=== PATIENT | female | born 1965 | race African-American/Black ===

== ENCOUNTER → 2016-12-30 | Outpatient (CLI) | payer OTHER ==
--- NOTE | 2016-12-30 08:40 | REPMRS ---
Patient History The patient states she has not had a clinical breast exam in over a year. Patient is postmenopausal. No known family history of cancer. Digital Woman Screen Mammo: December 30, 2016 - Exam #: [id number] Bilateral CC and MLO view(s) were taken. Technologist: Alicia Torres, Technologist Prior study comparison: January 20, 2016, digital woman screen mammo performed at [facility] to [facility]. December 06, 2014, digital woman screen mammo performed at [facility] to [facility]. November 13, 2013, digital woman screen mammo performed at [facility] to [facility]. FINDINGS: There are scattered fibroglandular densities. There has been no change in the appearance of the mammogram from the prior studies. There is a mild amount of scattered fibroglandular density which is fairly symmetric. There is no interval development of dominant mass, architectural distortion, or clustered microcalcification suggestive of malignancy. ASSESSMENT: BI-RADS/ACR category 1 mammogram. Negative. Recommendation Routine screening mammogram in 1 year (for women over age 40). This mammogram was interpreted with the aid of an FDA-approved computer-aided dectection system. Electronically Signed By: Bernard Nixon MD 12/30/16 0840
== END | disposition home or self-care (01) ==
LOC: M WHC 08:12
PROVIDERS: ATTEND Internal Medicine
DX: Z12.31 Encounter for screening mammogram for malignant neoplasm of breast (principal); Z78.0 Asymptomatic menopausal state

== ENCOUNTER → 2017-07-12 | Outpatient (CLI) | payer OTHER ==
--- NOTE | 2017-07-12 11:43 | REP ---
MRI OF THE LEFT ANKLE: TECHNIQUE: Sagittal proton density, STIR, axial proton density fat sat, T1, coronal proton density, STIR. The Achilles, anterior tibial, posterior tibial, flexor hallucis longus, flexor digitorum longus and peroneal tendons all appear intact. There is no evidence of tenosynovitis. The anterior and posterior talofibular, calcaneofibular, and deltoid ligaments appear intact. Plantar fascia demonstrates no abnormal signal. There is no evidence of plantar fascitis. Plantar tendon is intact. There is a normal amount of joint fluid. No ganglion cyst is seen. Tibiotalar joint is unremarkable with no osteochondral defect. IMPRESSION: Essentially negative MRI left ankle. Signed by Omar Santana MD 07/12/2017 12:52 P
== END ==
LOC: M RAD 10:09
PROVIDERS: ATTEND Podiatrist
DX: M76.822 Posterior tibial tendinitis, left leg (principal)

== ENCOUNTER → 2018-01-11 | Outpatient (CLI) | payer OTHER | LOC: M WHC 08:04 | DX: Z12.31 Encounter for screening mammogram for malignant neoplasm of breast (principal) ==

== ENCOUNTER → 2020-09-12 | Outpatient (CLI) | payer OTHER ==
--- NOTE | 2020-09-12 10:10 | REPMRS ---
Patient History The patient states she has not had a clinical breast exam in over a year. Family history of prostate cancer at age 50 or over in maternal uncle. Digital Woman Screen Mammo: September 12, 2020 - Exam #: [id number] Bilateral CC and MLO view(s) were taken. Technologist: Darby Ness, Technologist Prior study comparison: April 19, 2019, bilateral digital woman screen mammo performed at [facility]. January 11, 2018, digital woman screen mammo performed at [facility]. December 30, 2016, digital woman screen mammo performed at [facility]. FINDINGS: There are scattered fibroglandular densities. The Volpara volumetric breast density category is:B. There has been no change in the appearance of the mammogram from the prior studies. There is a mild amount of scattered fibroglandular density which is fairly symmetric. There is no interval development of dominant mass, architectural distortion, or grouped microcalcification suggestive of malignancy. 3-D tomosynthesis shows no additional findings. Assessment: BI-RADS/ACR category 1 mammogram. Negative Mammogram. Recommendation Routine screening mammogram of both breasts in 1 year (for women over age 40). This patient's Lifetime Breast Cancer Risk is estimated at 7.0 %. This mammogram was interpreted with the aid of an FDA-approved computer-aided dectection system. Electronically Signed By: Bernard Nixon MD 09/12/20 [id number]
== END ==
LOC: M WHC 07:29
PROVIDERS: ATTEND Family Medicine
DX: Z12.31 Encounter for screening mammogram for malignant neoplasm of breast (principal); Z80.42 Family history of malignant neoplasm of prostate

== ENCOUNTER 2020-12-23 07:53 | Day surgery (SDC) | payer OTHER ==
[~2020-12-23] VITALS: Ht 154.9 cm; Wt 78.0 kg
[~2020-12-23 07:53] MED LIST: HYDR12CA PO; NS 1,000 ML IV ONE; SERT-138 PO; SYNT75TA PO
[2020-12-23] MEDS ORDERED: propofoL 200 MG/20 ML VIAL As Ordered ONE ×2 (08:13→09:54)
[2020-12-23] MEDS ORDERED: LIDOCAINE 2% 100MG/5ML SDV (FOR ANES.) As Ordered ONE (08:13)
--- NOTE | 2020-12-23 10:00 | ROOR ---
Patient Name: Mary Milton Procedure Date: 12/23/2020 9:25 AM Date of : 1965 Age: 55 Room: [facility] Gender: Female Note Status: Finalized Procedure: Colonoscopy Indications: Change in bowel habits Providers: Arnaldo RASHID MD Referring MD: DIANE CONTRERAS MD Requesting Provider: Medicines: Monitored Anesthesia Care Complications: No immediate complications. Procedure: Pre-Anesthesia Assessment: - The heart rate, respiratory rate, oxygen saturations, blood pressure, adequacy of pulmonary ventilation, and response to care were monitored throughout the procedure. The Colonoscope was introduced through the anus and advanced to the cecum, identified by appendiceal orifice and ileocecal valve. The colonoscopy was somewhat difficult due to a tortuous colon. Successful completion of the procedure was aided by applying abdominal pressure. The patient tolerated the procedure well. The quality of the bowel preparation was good. Findings: The perianal and digital rectal examinations were normal. The colon (entire examined portion) was redundant. Small Internal Hemorrhoids. The exam was otherwise without abnormality. Impression: - Somewhat redundant, but otherwise normal colon. - Small Internal Hemorrhoids. - No specimens collected. Recommendation: - Use fiber, for example Citrucel, Fibercon, Konsyl or Metamucil. Procedure Code(s): --- Professional --- 05523, Colonoscopy, flexible; diagnostic, including collection of specimen(s) by brushing or washing, when performed (separate procedure) Diagnosis Code(s): --- Professional --- Q43.8, Other specified congenital malformations of intestine R19.4, Change in bowel habit CPT copyright 2019 [employer]. All rights reserved. The codes documented in this report are preliminary and upon lieutenant/deputy review may be revised to meet current compliance requirements. Arnaldo Rashid MD Arnaldo RASHID MD 12/23/2020 10:00:02 AM Electronically signed by Arnaldo RASHID MD Number of Addenda: 0 Note Initiated On: 12/23/2020 9:25 AM Estimated Blood Loss: Estimated blood loss: none.
[2020-12-23 10:40] VITALS: BP 146/65
== END 2020-12-23 10:42 | disposition home or self-care (01) ==
LOC: M OPP 07:53
PROVIDERS: ATTEND Internal Medicine Gastroenterology
DX: R19.4 Change in bowel habit (principal); K64.8 Other hemorrhoids; Q43.8 Other specified congenital malformations of intestine; I10 Essential (primary) hypertension; E03.9 Hypothyroidism, unspecified; F41.9 Anxiety disorder, unspecified; F32.9 Major depressive disorder, single episode, unspecified; Z79.899 Other long term (current) drug therapy; Z83.3 Family history of diabetes mellitus; Z83.6 Family history of other diseases of the respiratory system

== ENCOUNTER 2021-01-06 11:40 | Emergency (ER) | payer OTHER ==
[~2021-01-06 11:40] MED LIST changes: -NS 1,000 ML IV ONE
[2021-01-06] MEDS ORDERED: HYDROMORPHONE HCL 0.5 MG/ 0.5 ML SYRINGE (J1170 PER 1) IV PRN (14:45)
--- NOTE | 2021-01-06 15:11 | REP ---
INDICATION: hypertension COMPARISON: 08/17/2011 TECHNIQUE: Portable AP view of the chest FINDINGS: The mediastinum and cardiac silhouette are stable and within normal limits for portable technique. The lung davis are clear without acute consolidation, effusion, or pneumothorax. Skeletal structures are intact. IMPRESSION: No acute cardiopulmonary process appreciated. <Electronically signed by Ken Duque > 01/06/21 3081
--- NOTE | 2021-01-06 15:39 | REP ---
INDICATION: headache COMPARISON: None. TECHNIQUE: Axial noncontrast images from the skull base to the vertex with coronal reformations. This CT examination was performed using the following dose reduction techniques: Automated exposure control, adjustment of mA and/or kv according to the patient's size, and use of iterative reconstruction technique. FINDINGS: The ventricles, sulci, and cisterns are normal in position and appearance. Santana-white differentiation is maintained. No acute intracranial hemorrhage, mass/mass effect, pathology or trauma/injury. No evidence for acute infarction. No extra-axial fluid collection. Calvarium is intact. Paranasal sinuses and mastoid air cells are clear. IMPRESSION: Normal noncontrast head CT. No evidence for acute intracranial pathology or trauma/injury. <Electronically signed by Ken Duque > 01/06/21 2201
[2021-01-06 15:50] LABS: BASO % 0.3 % (0.0-1.0); EOS % 0.5 % (0.0-3.0); HEMATOCRIT 40.1 % (36.0-47.0); HEMOGLOBIN 12.4 g/dl (12.0-15.5); LYMPH # 1.6 10^3/uL (1.5-5.0); LYMPH % 27.2 % (24.0-44.0); MEAN CORPUSCULAR HEMOGLOBIN 28.8 pg (27.0-33.0); MEAN CORPUSCULAR HGB CONC 30.9 g/dl (32.0-36.5); MONO # 0.3 10^3/uL (0.0-0.8); MONO % 4.3 % (0.0-5.0); NEUTROPHILS # 3.9 10^3/uL (1.5-8.5); NEUTROPHILS % 67.5 % (36.0-66.0); PLATELET COUNT, AUTOMATED 233 10^3/uL (150-450); RED BLOOD COUNT 4.31 10^6/uL (4.00-5.40); WHITE BLOOD COUNT 5.8 10^3/uL (4.0-10.0)
[2021-01-06] MEDS ORDERED: METOCLOPRAMIDE INJ 10MG/2ML VIAL (J2765 PER 1) IV ONE (16:00)
[2021-01-06] MEDS ORDERED: KETOROLAC 30 MG/ML 1ML VIAL IV ONE (16:00)
[2021-01-06] MEDS ORDERED: ACETAMINOPHEN 500 MG TAB PO ONE (16:00)
[2021-01-06] MEDS ORDERED: diphenhydrAMINE 50MG/ML VIAL (J1200) IV ONE (16:00)
[2021-01-06 16:19] LABS: ALBUMIN 3.6 GM/DL (3.2-5.2); ALT/SGPT 21 U/L (12-78); BILIRUBIN,DIRECT < 0.1 MG/DL (0.0-0.2); BILIRUBIN,TOTAL 0.4 MG/DL (0.2-1.0); THYROID STIMULATING HORMONE 0.208 uIU/ML (0.358-3.740); TOTAL PROTEIN 7.4 GM/DL (6.4-8.2)
[2021-01-06] MEDS ORDERED: amLODIPine 5 MG TAB PO ONE (17:30)
[2021-01-06 17:54] VITALS: BP 153/74
[2021-01-06] MEDS ORDERED: AMLO1TAB24 PO (18:28)
[2021-01-06 18:49] VITALS: BP 167/88
[2021-01-06 19:26] LABS: FREE T4 1.44 NG/DL (0.76-1.46)
--- NOTE | 2021-01-07 08:53 | ECGEPIP ---
[facility] - ED Test Date: 2021-01-06 Pat Name: DM GAMNIO Department: Room: - Gender: Female Candy Dipper Hand: ROSE MARY : 1965 Requested By: SHAHEED Milian Order Number: [id number] Reading MD: Jena Thakur Measurements Intervals [place] Rate: 64 P: 53 AR: 156 QRS: 13 QRSD: 88 T: 10 QT: 403 QTc: 419 Interpretive Statements SINUS RHYTHM NO PRIOR Electronically Signed on 01-07-2021 8:52:29 EST by Jena Thakur
== END 2021-01-06 18:45 | disposition home or self-care (01) ==
LOC: M ED 11:40
DX: I16.0 Hypertensive urgency (principal); F41.9 Anxiety disorder, unspecified; F32.9 Major depressive disorder, single episode, unspecified; E03.9 Hypothyroidism, unspecified; Z79.899 Other long term (current) drug therapy
CPT/HCPCS: 36415; 70450; 71045; 80047; 80076; 84439; 84443; 85025; 93005; 93041; 94760; 96374; 96375; 99285; J1170; J1200; J1885; J2765

== ENCOUNTER → 2022-01-12 | Outpatient (CLI) | payer OTHER ==
[~2022-01-12] MED LIST changes: +AMLO1TAB24 PO
== END ==
LOC: M WHC 13:21
PROVIDERS: ATTEND Family Medicine
DX: Z12.31 Encounter for screening mammogram for malignant neoplasm of breast (principal)

== ENCOUNTER → 2023-03-10 | Outpatient (CLI) | payer OTHER | LOC: M WHC 14:01 | PROVIDERS: ATTEND Nurse Practitioner Primary Care | DX: Z12.31 Encounter for screening mammogram for malignant neoplasm of breast (principal) ==

== ENCOUNTER → 2024-04-28 | Outpatient (CLI) | payer OTHER | LOC: M WHC 14:01 | PROVIDERS: ATTEND Nurse Practitioner Primary Care | DX: Z12.31 Encounter for screening mammogram for malignant neoplasm of breast (principal) ==